=== PATIENT | female | born 1940 | race Caucasian/White ===

== ENCOUNTER 2020-03-23 08:55 | Inpatient (IN) ==
[2020-03-23] MEDS ORDERED: Isovue-370 500 ML BOTTLE IVP ONE (09:30)
[2020-03-23 09:48] LABS: Red Cell Distribution Width 14.4 % (11.5-14.5)
[2020-03-23 09:49] LABS: Hematocrit 32.4 % (35.3-44.9); Hemoglobin 10.7 g/dL (11.5-15.4); Mean Corpuscular Hemoglobin 30.5 pg (28.0-33.3); Mean Corpuscular Volume 92.3 fL (83.0-100.0); Mean Platelet Volume 9.2 fL (9.4-12.4); Platelet Count 132 K/mcL (140-400); Red Blood Count 3.51 M/mcL (3.82-4.97)
[2020-03-23 09:59] LABS: White Blood Count 45.7 K/mcL (4.3-11.1)
[2020-03-23 10:12] LABS: Alanine Aminotransferase 9 Units/L (7-52); Albumin 4.1 g/dL (3.5-5.7); Albumin/Globulin Ratio 1.5 (1.1-2.2); Alkaline Phosphatase 83 Units/L (34-104); Aspartate Amino Transferase 17 Units/L (13-39); BUN/Creatinine Ratio 22 (6-26); Bilirubin,Direct 0.3 mg/dL (0.0-0.2); Bilirubin,Indirect 0.5 mg/dL (0.0-1.0); Bilirubin,Total 0.8 mg/dL (0.3-1.0); Blood Urea Nitrogen 16 mg/dL (8-23); Calcium 9.5 mg/dL (8.6-10.3); Carbon Dioxide 24 mEq/L (23-29); Chloride 92 mEq/L (98-107); Globulin 2.7 g/dL (2.4-3.5); Glucose 109 mg/dL (70-105); Lipase < 3 Units/L (11-82); Magnesium 2.2 mg/dL (1.6-2.6); Osmolality,Calculated 266 (280-300); Phosphorous 3.3 mg/dL (2.7-4.5); Sodium 127 mEq/L (136-145); Total Protein 6.8 g/dL (6.4-8.9); Troponin I < 0.03 ng/mL (< 0.04); eGFR For African Americans > 60 (> 60); eGFR For Non-African Americans > 60 (> 60)
[2020-03-23 10:29] LABS: Bacteria,Urine Few per hpf (None-Few); Bilirubin,Urine Negative (Negative); Blood,Urine Moderate (Negative); Clarity,Urine Clear (Clear); Color,Urine Yellow (Yellow); Glucose,Urine (UA) Normal (Normal); Hyaline Casts,Urine Few per lpf (None Seen); Ketones,Urine 40 mg/dL (Negative); Leukocyte Esterase,Urine Negative (Negative); Mucus,Urine Few per lpf (None-Few); Nitrite,Urine Negative (Negative); Protein,Urine >=600 mg/dL (Neg-Trace); RBC,Urine 15-30 per hpf (0-3); Specific Gravity,Urine 1.029 (1.010-1.025); Squamous Epithelial Cell,Urine Few per hpf (None-Few)
[2020-03-23] MEDS ORDERED: cefTRIAXone 1,000 MG in Water for inj. (sterile) 10 ML IVP ONE (10:51)
[2020-03-23] MEDS ORDERED: Azithromycin 500 MG in 0.9 % Sodium Chloride 250 ML IVPB ONE (10:51)
[2020-03-23 11:12] LABS: Eosinophils # 1.8 K/mcL (0.0-0.6); Lymphocytes # 36.6 K/mcL (0.6-4.6); Neutrophils # 3.7 K/mcL (1.6-8.9); Platelet Estimate Normal (Normal); Smudge Cells Present (Not Present)
[2020-03-23] MEDS ORDERED: Ondansetron 4 MG/2 ML VIAL IVP STA (12:11)
[2020-03-23] MEDS ORDERED: Ibuprofen 400 MG TABLET PO ONE (12:11)
[2020-03-23] MEDS ORDERED: Naloxone 0.4 MG/ML INJ IVP PRN (13:43)
[2020-03-23] MEDS ORDERED: Ondansetron 4 MG/2 ML VIAL IVP PRN (13:43)
[2020-03-23 15:56] LABS: Sodium, Urine 32.7 mEq/L
[2020-03-24] MEDS: Benzonatate 100 MG CAPSULE PO PRN ×2 (01:24→19:26)
[2020-03-24] MEDS: Acetaminophen 325 MG TABLET PO PRN ×2 (01:24→15:45)
[2020-03-24] MEDS: *HR* Enoxaparin 40 MG/0.4 ML SYRINGE SQ SCH (05:13)
[2020-03-24 06:03] LABS: Basophils % 0.2 %; Immature Granulocytes % 0.2 % (0-4)
[2020-03-24 06:05] LABS: Basophils # 0.1 K/mcL (0.0-0.2); Hematocrit 28.9 % (35.3-44.9); Hemoglobin 9.3 g/dL (11.5-15.4); Lymphocytes # 30.5 K/mcL (0.6-4.6); Lymphocytes % 87.7 %; Mean Corpuscular HGB Conc 32.2 g/dL (31.6-35.5); Mean Corpuscular Hemoglobin 29.7 pg (28.0-33.3); Mean Corpuscular Volume 92.3 fL (83.0-100.0); Mean Platelet Volume 9.1 fL (9.4-12.4); Monocytes % 3.3 %; Platelet Count 124 K/mcL (140-400); Red Blood Count 3.13 M/mcL (3.82-4.97); Red Cell Distribution Width 14.2 % (11.5-14.5); Segmented Neutrophils % 8.6 %
[2020-03-24 06:15] LABS: Monocytes # 1.2 K/mcL (0.0-1.3); White Blood Count 34.8 K/mcL (4.3-11.1)
[2020-03-24 06:47] LABS: BUN/Creatinine Ratio 27 (6-26); Blood Urea Nitrogen 26 mg/dL (8-23); Carbon Dioxide 26 mEq/L (23-29); Chloride 93 mEq/L (98-107); Glucose 137 mg/dL (70-105); Magnesium 2.4 mg/dL (1.6-2.6); Osmolality,Calculated 271 (280-300); Potassium 4.5 mEq/L (3.5-5.1); Sodium 127 mEq/L (136-145); eGFR For African Americans > 60 (> 60); eGFR For Non-African Americans 56 (> 60)
[2020-03-24] MEDS ORDERED: 0.9 % Sodium Chloride 1,000 ML IVC SCH (13:00)
[2020-03-25 03:17] LABS: Basophils % 0.1 %; Segmented Neutrophils % 7.6 %
[2020-03-25 03:19] LABS: Hematocrit 29.4 % (35.3-44.9); Hemoglobin 9.4 g/dL (11.5-15.4); Immature Granulocytes % 0.2 % (0-4); Lymphocytes # 51.6 K/mcL (0.6-4.6); Lymphocytes % 90.6 %; Mean Corpuscular Hemoglobin 30.1 pg (28.0-33.3); Mean Corpuscular Volume 94.2 fL (83.0-100.0); Mean Platelet Volume 9.2 fL (9.4-12.4); Monocytes % 1.5 %; Neutrophils # 4.3 K/mcL (1.6-8.9); Platelet Count 162 K/mcL (140-400); Red Blood Count 3.12 M/mcL (3.82-4.97); Red Cell Distribution Width 14.4 % (11.5-14.5)
[2020-03-25 03:23] LABS: Fibrinogen 525 mg/dL (169-393)
[2020-03-25 03:25] LABS: D-Dimer 437 ng/mLFEU (0-500)
[2020-03-25 03:28] LABS: Basophils # 0.1 K/mcL (0.0-0.2); Monocytes # 0.9 K/mcL (0.0-1.3)
[2020-03-25 03:35] LABS: BUN/Creatinine Ratio 30 (6-26); Blood Urea Nitrogen 27 mg/dL (8-23); Carbon Dioxide 25 mEq/L (23-29); Chloride 96 mEq/L (98-107); Glucose 120 mg/dL (70-105); Osmolality,Calculated 276 (280-300); Potassium 4.8 mEq/L (3.5-5.1); Sodium 130 mEq/L (136-145); eGFR For African Americans > 60 (> 60); eGFR For Non-African Americans > 60 (> 60)
[2020-03-25 03:51] LABS: Reactive Lymphocytes Present (Not Present); Smudge Cells Present (Not Present)
[2020-03-25 03:52] LABS: Platelet Estimate Normal (Normal)
[2020-03-25] MEDS: *HR* Enoxaparin 40 MG/0.4 ML SYRINGE SQ SCH (05:03)
[2020-03-25] MEDS: Acetaminophen 325 MG TABLET PO PRN ×2 (05:04→21:53)
[2020-03-25] MEDS: Benzonatate 100 MG CAPSULE PO PRN ×2 (09:00→21:53)
[2020-03-25] MEDS ORDERED: IVIG (wt based) Privigen 5 GM/50 ML INFUS..BTL IVC ONE (17:10)
[2020-03-26] MEDS: Acetaminophen 325 MG TABLET PO PRN (05:30)
[2020-03-26] MEDS: *HR* Enoxaparin 40 MG/0.4 ML SYRINGE SQ SCH (05:32)
[2020-03-26 06:03] LABS: Basophils % 0.1 %; Hemoglobin 9.4 g/dL (11.5-15.4); Immature Granulocytes % 0.2 % (0-4)
[2020-03-26 06:05] LABS: Basophils # 0.1 K/mcL (0.0-0.2); Hematocrit 29.6 % (35.3-44.9); Lymphocytes # 64.1 K/mcL (0.6-4.6); Lymphocytes % 91.9 %; Mean Corpuscular HGB Conc 31.8 g/dL (31.6-35.5); Mean Corpuscular Hemoglobin 29.9 pg (28.0-33.3); Mean Corpuscular Volume 94.3 fL (83.0-100.0); Mean Platelet Volume 8.8 fL (9.4-12.4); Monocytes # 0.8 K/mcL (0.0-1.3); Monocytes % 1.1 %; Neutrophils # 4.7 K/mcL (1.6-8.9); Platelet Count 196 K/mcL (140-400); Red Blood Count 3.14 M/mcL (3.82-4.97); Red Cell Distribution Width 14.6 % (11.5-14.5); Segmented Neutrophils % 6.7 %
[2020-03-26 06:16] LABS: BUN/Creatinine Ratio 29 (6-26); Blood Urea Nitrogen 22 mg/dL (8-23); Calcium 9.1 mg/dL (8.6-10.3); Carbon Dioxide 26 mEq/L (23-29); Chloride 96 mEq/L (98-107); Glucose 91 mg/dL (70-105); Osmolality,Calculated 271 (280-300); Potassium 4.8 mEq/L (3.5-5.1); Sodium 129 mEq/L (136-145); eGFR For African Americans > 60 (> 60); eGFR For Non-African Americans > 60 (> 60)
[2020-03-26 06:25] LABS: White Blood Count 69.7 K/mcL (4.3-11.1)
[2020-03-26 07:08] LABS: Anisocytosis 1+ (Not Present); Platelet Estimate Normal (Normal); Smudge Cells Present (Not Present)
[2020-03-26 07:09] LABS: Reactive Lymphocytes Present (Not Present)
[2020-03-26 10:35] VITALS: BP 147/72
== END 2020-03-26 14:55 | disposition home or self-care (01) | DRG 177 ==
LOC: 2NENU 08:55 → EMEROOARM 08:55 → SUATTDRO 13:02 → 2NENU 14:13
PROVIDERS: ADMIT Internal Medicine; ATTEND Internal Medicine